=== PATIENT | male | born 1985 | race African-American/Black ===

== ENCOUNTER 2021-07-02 16:19 | Emergency (ER) | payer MEDICAID ==
[~2021-07-02] VITALS: Ht 182.9 cm; Wt 79.0 kg
[2021-07-02 16:25] VITALS: BP 142/82
== END 2021-07-02 18:58 | disposition left against medical advice (07) ==
LOC: ER 16:19
DX: Z53.21 Procedure and treatment not carried out due to patient leaving prior to being seen by health care provider (principal)